=== PATIENT | male | born 1980 | race African-American/Black ===

== ENCOUNTER 2017-01-21 07:44 | Emergency (ER) | payer OTHER ==
[2017-01-21 07:48] VITALS: BP 146/71; PULSE 86; RESP 16; TEMP 98.4; O2SAT 98
--- NOTE | 2017-01-21 08:03 | PD ---
HPI . Sore throat, cough and congestion for 2 days Chief Complaint: ENT Complaint Time Seen by Provider: 08:03 Travel History International Travel<30 days: No Contact w/Intl Traveler<30days: No Traveled to known affect area: No History of Present Illness HPI 36-year-old male here with complaints of sore throat, cough and congestion for the past 2 days. Patient tells me that he feels that he may have had a fever, but never checked his temperature. He says it is difficult for him to swallow, but denies any shortness of breath or drooling. He reports his cough is slightly productive. He admits to smoking daily. He has no other complaints PFSH Past Medical History Medical History: Denies Significant Hx Social History Tobacco Use: Yes Allergies-Medications Reported Meds & Prescriptions Reported Meds & Active Scripts Active Augmentin (Amoxicillin-Clavulanate) 875-125 Mg Tab 1 Tab PO BID 10 Days Review of Systems General / Constitutional: No: Fever Eyes: No: Visual changes HENT: Positive: Sore Throat, Congestion, No: Headaches Cardiovascular: No: Chest Pain or Discomfort Respiratory: Positive: Cough, No: Shortness of Breath Gastrointestinal: No: Abdominal Pain Genitourinary: No: Dysuria Musculoskeletal: No: Pain Skin: No Rash Neurologic: No: Weakness Psychiatric: No: Depression Endocrine: No: Polydipsia Hematologic/Lymphatic: No: Easy Bruising Physical Exam Narrative GENERAL: AAO x 3, no acute distress, Well-nourished, well-developed patient. SKIN: Warm and dry. No visible rashes or bruising. HEAD: Normocephalic and atraumatic. EYES: No scleral icterus. No injection or drainage. ENT: No nasal drainage noted. Mucous membranes pink. Airway patent. Moderate posterior pharynx erythema, bilateral edematous tonsils, uvula is midline, no exudates. TMs with clear effusions bilaterally. Maxillary sinus tenderness along with frontal sinal tenderness. NECK: Supple, trachea midline. No JVD. Cervical chain lymphadenopathy CARDIOVASCULAR: Regular rate and rhythm without murmurs, gallops, or rubs. RESPIRATORY: Breath sounds equal bilaterally. No accessory muscle use. No rhonchi or rales. GASTROINTESTINAL: Visual inspection normal EXTREMITIES: No cyanosis or edema. BACK: No obvious deformity. NEURO: CN II-12 intact, PSYCH: AAO x 3, normal affect. Data Data Last Documented VS Vital Signs Date Time Temp Pulse Resp B/P Pulse Ox O2 Delivery O2 Flow Rate FiO2 01/21/17 07:48 98.4 86 16 146/71 98 Room Air MDM Medical Decision Making Medical Screen Exam Complete: Yes Emergency Medical Condition: Yes Medical Record Reviewed: Yes Differential Diagnosis Acute pharyngitis, acute sinusitis, less likely pneumonia, less likely influenza , Narrative Course 36-year-old male here with complaints of sore throat, cough and congestion. He appears to have an acute pharyngitis and sinusitis. I discussed these findings with him and recommend antibiotic treatment. I provided him with Augmentin. I've advised him if he develops any shortness of breath, drooling or worsening of his condition to go to the nearest emergency department. Patient verbalized understanding of instructions, questions were answered, and thanked me for their care. I advised them if their condition worsens, please return to the nearest emergency room for further care. Diagnosis Primary Impression: Acute pharyngitis Qualified Code: J02.9 - Acute pharyngitis, unspecified etiology Additional Impression: Acute sinusitis Qualified Code: J01.90 - Acute non-recurrent sinusitis, unspecified location Patient Instructions: General Instructions Additional Instructions: Take medications as prescribed. Try salt water gargles. Do not share utensils, toothbrush, etc. If you develop difficulty breathing, please go to the nearest emergency room. Please return to emergency department if your symptoms return or worsen. Follow up with your primary care provider. Take medications as prescribed. Med/Other Pt SpecificInfo: Prescription(s) given Scripts Amoxicillin-Clavulanate (Augmentin)875-125 Mg Tab1 Tab PO BID 10 Days Prov:Nighat Belle DO 01/21/17 Disposition: 01 DISCHARGE HOME Condition: Stable Margo eRmy Jan 21, 2017 08:03
[2017-01-21] MEDS ORDERED: AUGM875T3 PO (08:06)
== END 2017-01-21 08:40 | disposition home or self-care (01) ==
LOC: NEPK 07:44
DX: J02.9 Acute pharyngitis, unspecified (principal); J01.90 Acute sinusitis, unspecified; R05 Cough; Z72.0 Tobacco use
CPT/HCPCS: 99283